=== PATIENT | female | born 1995 | race Caucasian/White ===

== ENCOUNTER 2025-04-18 10:24 | Outpatient (RCR) | payer OTHER, SELFPAY ==
--- OUTSIDE RECORDS SUMMARY | 2025-04-18 10:34 | XMS_ITS | Continuity of Care Document ---
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 It does not include entries that were removed or entered in error. Substance Category Reaction Severity Reaction type Status Date Reported Comments Source No Known Allergies Drug allergy (disorder) active 12/11/2022 [facility] Results Combined list of recent chemistry, hematology and other laboratory results from Department of [employer] [facility], ranging from 15 months to all on record, depending upon the facility. Order Name Results Value Reference Range Date Interpretation Specimen Comments Source Chemistry POC U HCG Positive 1 *ABN* (12/05/22 8:36 AM) 12/05 A Interpretive Data: Expected Results: Healthy non- women do not have detectable hCG levels Negative Result: <= 5mIU/mL Positive Result: >= 25mIU/mL Borderline Result: 5-25mIU/mL; repeat in 48-72 hours or order a quantitative serum hCG. 0042A-A F-H-96t h [facility] Vital Signs Combined list of inpatient and outpatient Vital Signs from Department of [employer] [facility], ranging from 12 months to all on record, depending upon the facility. Vital Sign Value Date Comments Source Blood Pressure Manual Automatic 12/05/2022 15:41:00 1571N-RL-Z-96th [facility] Peripheral Pulse Rate 76 bpm 12/05/2022 15:41:00 3562L-VH-H-96th [facility] Respiratory Rate 16 br/min 12/05/2022 15:41:00 1277E-UW-J-96th [facility] Systolic Blood Pressure 132 mm[Hg] 12/05/2022 15:41:00 2452R-BM-D-96th [facility] Diastolic Blood Pressure 84 mm[Hg] 12/05/2022 15:41:00 1054I-YN-S-96th [facility] Temperature Oral 36.9 [place] 12/05/2022 15:41:00 6858S-RI-M-96th [facility] BP Site Left arm 12/05/2022 15:41:00 0042C -AF-H-96th [facility] Mean Arterial Pressure, Cuff (Calc) 100 mm[Hg] 12/05/2022 15:41:00 8567M-UN-T-9 6th [facility] Blood Pressure Manual Automatic 12/06/2022 18:49:00 5740H-BO-C-96th [facility] Peripheral Pulse Rate 60 bpm 12/06/2022 18:49:00 7748T-XA-W-th [facility] Temperature Oral 37.3 [place]a 12/06/2022 18:49:00 9172U-EP-Y-96th [facility] Respiratory Rate 16 br/min 12/06/2022 18:49:00 2885A-CH-Z-96th [facility] Systolic Blood Pressure 126 mm[Hg] 12/06/2022 18:49:00 5145X-OZ-Z-96th [facility] Diastolic Blood Pressure 82 mm[Hg] 12/06/2022 18:49:00 2872N-DK-F-96th [facility] Mean Arterial Pressure, Cuff (Calc) 97 mm[Hg] 12/06/2022 18:49:00 6407E-KQ-P-9 6th [facility] BP Site Left arm 12/06/2022 18:49:00 0042C -AF-H-96th [facility] Procedures Combined list of: 1) Procedures from [facility] facilities [facility], not all [facility] non-surgical procedures are included; 2) All procedures from the Department of 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 Social History Type Response Date Comment Sourc e Tobacco Exposure to Secondha nd Smoke: No. Never-cigarette user Cigarette use:. Never-other tobacco user (not cigarettes) Other Tobacco use:. [facility] Sexual Orientation Ambula tory Pharmacy Gender identity [facility]ulator y [facility] Sex Representation Female (finding) Unknown Organization This section is an empty social history section. [facility] Assessment and Plan Combined list of future care activities from Department of Defense and Veterans Affairs facilities (e.g., assessment and plan notes, appointments, orders, and referrals). Additional future care activities may be listed in the Plan of Care section. Result Assessment and Plan Date Source Assessment and Plan Extracted from:Title : Summary Document Author: [employer], [employer] Lizzie Samuel Managed Acct Date: 09/08/23 Chata Gleason : 1995 Age: 27 Years -------- Chata Gleason : [birth year] Summary (Date of Report: 09/08/23) (0,0,0,0) Gestation: -- LMP: 10/30/2022 (from pt. history) ZOLTAN: 08/06/2023 ZOLTAN/EGA Method: Last Menstrual Period EGA: 44 weeks 5 days -------- Chata Gleason : [birth year] Antepartum Note No antepartum notes have been documented -------- Chata Gleason : [birth year] Problems (Active Problems Only) (SNOMED CT: [id number], Onset: 10/30/22) -------- Chata Gleason : [birth year] Risk Factors and Genetic Screening All Results Documented Since 10/30/2022 Risk Factors (Current ) No risk factors have been recorded for this . Ethnic Screening Baby's father: Genetic Disorders Screening No genetic disorders have been recorded. -------- Chata Gleason : [birth year] Gestational Age (EGA) and ZOLTAN * Note: EGA calculated as of 09/08/2023 ZOLTAN: 08/06/2023 EGA*: 44 weeks 5 days Type: Authoritative Method Date: 10/30/2022 Method: Last Menstrual Period (10/30/2022) Confirmation: Confirmed Description: -- Comments: -- Entered by: FAMILIA BRADFORD on 12/08/2022 Other ZOLTAN Calculations for this : No additional ZOLTAN calculations have been recorded for this -------- Chata Gleason : [birth year] Measurements Pre- Weight: 72.6 kg 12/08/22 (5 weeks) Recent Weight Measured: 73.3 kg (+1) 12/05/22 (5 weeks) Height/Length Measured: 165.1 cm 12/05/22 (5 weeks) Body Mass Index Measured: 26.89 kg/m2 12/05/22 (5 weeks) -------- Chata Gleason : [birth year] Exam and Notes Date MARCO A Neff PTL S/S Cervix BP Weight Urine Baby cm Dil Eff(%) Sta mmHg lbs kg Gluc Prot FHR Activity Fet Pres 12/06/22 5w3d -- -- -- -- -- 126/82 -- -- -- -- -- -- 12/05/22 5w1d -- -- -- -- -- 132/84 *161... -- -- -- -- -- * Weight 12/05/2022 161.626(lbs) 73.3(kg) -------- Chata Gleason : [birth year] Physical Exams Physical Exam Respiratory Oxygen Therapy: Room air (12/06/22) SpO2: 98 % (12/06/22) -------- Chata Gleason : [birth year] Blood Types and Anti-D Immune Globulin Blood Type and Screen Mother ABO/Rh: -- Mother Antibody Screen: -- Father of Baby ABO/Rh: -- Father of Baby Antibody Screen: -- Anti-D Immune Globulin Rho(D) Initial Status: -- Rho(D) 28 Week Status: -- Rho(D) Dates Given: -- -------- Chata Gleason : [birth year] Tests and Lab Results Results ending with 'TR' have been keyed in by the practice or interpreted manually. Result Date: Estimated weeks post onset will display next to actual result date. Test Result Date Ref Range POC U HCG (A) Positive 12/05/22 (5 weeks) Negative POC Kit Lot # (N) [id number] 12/05/22 (5 weeks) Agricultural Engineering Teacher ID (N) [id number] 12/05/22 (5 weeks) POC Internal QC OK? Pass 12/05/22 (5 weeks) Pass POC Kit Exp Date (N) 02/24/2023 00:00 12/05/22 (5 weeks) -------- Chata Gleason : [birth year] Actions No Actions have been documented. -------- Chata Gleason : [birth year] Situational Awareness No comments have been documented. -------- Chata Gleason : [birth year] Allergies (Active and Proposed Allergies Only) No Known Medication Allergies (Severity: Unknown severity, Onset: Unknown) -------- Chata Gleason : [birth year] Medications Prescriptions and Home Medications Currently Active or Taking No medications have been recorded Inactive or Suspended (Prescriptions and documented medications since 08/01/22) No medications have been recorded Medication Administrations In-Office/Hospital (All in-office/hospital administrated medications ordered since 08/01/22) No medications have been recorded -------- Chata Gleason : [birth year] Immunizations No immunizations have been administered or recorded as given -------- Chata Gleason : [birth year] Menstrual History Last Recorded Menstrual Period: 10/30/2022 Last Menstrual Period Description: -- Menarche Onset: 11 years Menarche Frequency: -- Menarche Length: -- Date of Menses Prior to LMP: -- On Hormonal Contracept within 2 months of LMP: -- Date of Home Test: -- Comments: -- -------- Chata Gleason : [birth year] History (0,0,0,0) No previous pregnancies history have been recorded -------- Chata Gleason : [birth year] Medical History Past Medical History No active past medical history has been recorded Family History No active positive family history has been recorded Procedure or Surgical History Appendectomy Age: 15 Years Date: 2011 Mastoidectomy Age: 15 Years Date: 2011 -------- Chata Gleason : [birth year] Social and Psychosocial History Social History Alcohol Never Use:. Tobacco Exposure to Secondhand Smoke: No. Never-cigarette user Cigarette use:. Never-other tobacco user (not cigarettes) Other Tobacco use:. E-Cigarette/Vaping No Passive Exposure. Never - E-Cigarette/Vaping user Electronic Cigarette Use:. Domestic Violence Screen Have You Ever Been Emotionally Or Physically Abused by Your Partner: No Have You Been Physically Hurt by Someone Within the Past Year: No Within the Last Year, Has Anyone Forced You to Have Sexual Activity: No -------- Chata Gleason : [birth year] Infection History Infection history negative or not recorded -------- Chata Gleason : [birth year] Anesthesia and Transfusions Prior Anesthesia or Transfusion Received: Prior general anesthesia, No prior transfusion Prior Anesthesia Reaction(s): None Prior Transfusion Reaction(s): -- Blood Transfusion Acceptable to Patient: Yes -------- Chata Gleason DOB: [birth year] Plan and Patient Requests Education: -- Written Plan: -- Written Plan Location: -- Oral Intake OB: -- Labor Preferences: -- Non-Medicinal Pain Relief: -- Anesthesia/Pain Medication During Labor: -- Delivery Plan: -- Infant Feeding: -- Circumcision: -- Baby For Adoption: -- Support Person/Scheduling Coordinator Relationship to Pt: -- Patient Requests: -- Enrobing Machine Feeder Selected: -- Surrogate : -- Support Person's Name: -- -------- Chata Gleason : [birth year] Education Educational Materials/Leaflets Provided No educational materials have been recorded as provided -------- Chata Gleason : [birth year] Registration and Information Race: -- Ethnicity: -- Marital Status: -- Language(s): -- Religion Preference(s): -- Occupation/Education: See social history above if documented. Address, Phone, and Health Plans Home Address: [address] [place] [id number] Phone: [phone] (Home), --, -- Health Plans: 1 - FINAL BENEFIT Member/Group: [id number] Deductible: $ -- Type: [facility] Address: [address] [place] [address] Phone: [phone] 2 - [facility] [employer] [facility] and Retail [facility] Member/Group: [id number] Deductible: $ -- Type: [facility]/ Address: [address] [place] [address] Phone: [phone] 3 - DENTAL Member/Group: [id number] Deductible: $ -- Type: [facility] Address: [address] [place] [address] Phone: [phone] 4 - [employer] Member/Group: [id number] Deductible: $ -- Type: [facility] Address: [address] [place] [address] Phone: -- General Information OB Provider(s) Information: Not explicitly recorded. May be noted in encounter section below. See below for detailed information for all visits and information. Delivery Center/Hospital Information: -- Provider Information: -- Referring Provider Information: -- Primary Provider Information: -- /Partner Information: -- -- Support Person Information: -- Planned/Unplanned : -- Date Consent Signed for Tubal Ligation: -- Date Record Sent to Hospital: -- -------- Chata Gleason : [birth year] Visits and Encounters (Known encounters since 10/30/2022. May include lab encounters.) Date Location Provider Type Medical Service 07/31/2023 [id number] -- Between Visit -- 01/16/2023 [id number] -- Care Not Rendered -- 12/13/2022 [id number] -- Between Visit -- 12/06/2022 [id number] -- Between Visit -- 12/06/2022 [id number] [facility] 12/05/2022 [id number]-[facility] 12/02/2022 [facility] -- -------- Chata Gleason : [birth year] Visit / Encounter Location Information The following information represents known location and contact information for locations visited during [address] [place] [address] Business Address: [address] [place], [place] [address] [place] [address] Phone: No phone numbers found on file for location -------- Chata Gleason : [birth year] Visit Diagnosis (Note: All diagnoses documented since 10/30/2022) 12/13/22 - state, incidental (ICD-10-CM: Z33.1, Date: 12/15/22) 12/06/22 - state, incidental (ICD-10-CM: Z33.1, Date: 12/06/22) 12/05/22 - Primary amenorrhea (ICD-10-CM: N91.0, Date: 12/05/22) -------- VictorinoChata : [birth year] Delivery Summary No labor/delivery information has been documented -------- Note: Items documented with '--' had no clinical data which qualified at time of report creation END OF REPORT 04/18/2025 Unknown Organization Functional Status Combined list of recent functional and cognitive assessments recorded at [facility] Functional [place] Measurement (FIM) Scale: 1 = Total Assistance (Subject = 0% +), 2 = Maximal Assistance (Subject = 25% +), 3 = Moderate Assistance (Subject = 50% +), 4 = Minimal Assistance (Subject = 75% +), 5 = Supervision, 6 = Modified [place] (Device), 7 = Complete [place] (Timely, Safely). Assessment Date/Time Source Assessment Type Assessment Skill Assessment Score Assessment Details No data available for this section
--- OUTSIDE RECORDS SUMMARY | 2025-04-18 10:35 | XMS_ITS ---
Author Organization Unknown ENCOUNTERS Encounter Performer Location Date Diagnosis Diagnosis Status Outpatient [address] [id number] *Note: Encounters from your own facility or health system may be excluded. Allergies, Adverse Reactions, Alerts Allergen Type Severity Identification Date Medications Name Date Quantity Days Supplied GPI Number
[2025-04-19] MEDS: RHO(D) IMMUNE GLOBULIN 300 MCG/2 ML SYRINGE IM (10:27)
== END 2025-07-17 23:59 | disposition home or self-care (01) ==
LOC: ANHLAB 10:24
PROVIDERS: Visit Provider Obstetrics & Gynecology
DX: Z29.13 Encounter for prophylactic Rho(D) immune globulin (principal); O36.0130 Maternal care for anti-D [Rh] antibodies, third trimester, not applicable or unspecified; Z3A.00 Weeks of gestation of pregnancy not specified
CPT/HCPCS: 36415; 85461; 86850; 86900; 86901; 90384; 96372; J2790